=== PATIENT | female | born 1960 | race Asian ===

== ENCOUNTER 2016-07-11 21:53 | Observation (INO) | payer OTHER ==
[~2016-07-11] VITALS: Ht 160 cm; Wt 75.0 kg
[~2016-07-11 21:53] MED LIST: ADVIL200 M1 PO; AMLODIPINE BESYL5 MG PO; BENADRYL25 MG PO; CHILD ASPIRIN81 M1 PO; ENDOCET 5-3251 EACH PO; GLUCOPHAGE1000 MG PO; HUMULIN R100 UNITS/ SC; IBUPROFEN800 MG PO; KEFLEX500 MG PO; LEVEMIR100 UNIT/1 SQ; LISINOPRIL10 MG PO; LISINOPRIL20 MG PO; Levaquin PO; METOPROLOL SUCC50 MG PO; NOVOLOG 10100 UNITS/ SC; NOVOLOG MI100 UNIT/4 SC; PANTOPRAZOLE SO40 MG PO; PRILOSEC OTC20 MG PO; PYRIDIUM200 MG PO; TRAMADOL HCL50 MG PO; TYLENOL PM EX-1 EACH PO; TYLENOL REGULA325 MG PO; VICODIN 5-3001 EACH PO; XARELTO20 MG PO; ZESTRIL20 MG PO; ZOFRAN4 MG PO; Zestril,Prinivil PO
[2016-07-11] MEDS ORDERED: METOPROLOL TART25 MG PO (23:56)
[2016-07-11] MEDS ORDERED: LISINOPRIL40 MG PO (23:57)
[2016-07-11] MEDS ORDERED: METFORMIN HCL500 M1 PO (23:57)
[2016-07-11] MEDS ORDERED: GABAPENTIN300 MG PO (23:57)
[2016-07-12 00:29] LABS: HEMATOCRIT 42.1 % (36.0-46.0); MCH 29.5 PG (29.0-34.0); MCHC 33.7 G/DL (30.0-36.0); MCV 87.5 FL (83-99); MEAN PLAT.VOLUME 10.4 uM^3 (9.5-12.4); PLATELET COUNT 217 K/uL (156-360); RBC DIS.WIDTH-CV 12.8 % (11.8-14.6); RBC DIS.WIDTH-SD 40.9 % (39-53); RED BLOOD COUNT 4.81 M/uL (3.80-5.20); WHITE BLOOD COUNT 9.9 K/uL (4.1-10.2)
[2016-07-12 00:34] LABS: INTER. NORMALIZED RATIO 1.3; PROTHROMBIN TIME 13.4 (9.2-11.2); PTT 44.2 (25-32)
[2016-07-12 00:36] LABS: CHLORIDE 105 mEq/L (99-109); POTASSIUM 4.6 mEq/L (3.7-5.4); SODIUM 137 mEq/L (136-147)
[2016-07-12 00:38] LABS: GLUCOSE 211 mg/dL (70-99)
[2016-07-12 00:39] LABS: ANION GAP 6 MEQ/L (2-14)
[2016-07-12 00:40] LABS: TOTAL BILIRUBIN 0.2 mg/dL (0.0-1.0)
[2016-07-12 00:42] LABS: ALKALINE PHOSPHATASE 98 IU/L (3-129); GFR ESTIMATE (CALCULATED) 54 mL/min/
[2016-07-12 00:43] LABS: UREA NITROGEN (BUN) 23 mg/dL (9-23)
[2016-07-12 00:45] LABS: LIPASE 23 U/L (1.0-51.0)
[2016-07-12 06:02] VITALS: BP 186/88
[2016-07-12 07:24] VITALS: BP 180/79
[2016-07-12 08:59] LABS: HEMATOCRIT 41.8 % (36.0-46.0); MCH 29.4 PG (29.0-34.0); MCHC 33.5 G/DL (30.0-36.0); MCV 87.6 FL (83-99); MEAN PLAT.VOLUME 10.6 uM^3 (9.5-12.4); PLATELET COUNT 221 K/uL (156-360); RBC DIS.WIDTH-SD 41.8 % (39-53); RED BLOOD COUNT 4.77 M/uL (3.80-5.20); WHITE BLOOD COUNT 9.4 K/uL (4.1-10.2)
[2016-07-12 12:00] VITALS: BP 161/76
[2016-07-12 12:28] LABS: POINT-OF-CARE METER ID UU13113700
[2016-07-12] MEDS ORDERED: HYDROCHLOROTHIA25 MG PO (14:26)
[2016-07-12] MEDS ORDERED: METOPROLOL TART25 MG PO (14:26)
== END 2016-07-12 15:45 | disposition home or self-care (01) ==
LOC: EME 21:53 → EDOF 07-12 03:24 → 5WEST 07-12 05:24
PROVIDERS: Emergency Medicine; Family Medicine; Hospitalist
PROC: 2Y41X5Z Packing of Nasal Region using Packing Material (ICD-10-PCS; principal; 2016-07-12)
DX: I16.0 Hypertensive urgency (principal); I10 Essential (primary) hypertension; R04.0 Epistaxis; I48.91 Unspecified atrial fibrillation; Z86.73 Personal history of transient ischemic attack (TIA), and cerebral infarction without residual deficits; Z79.01 Long term (current) use of anticoagulants; R51 Headache; E78.5 Hyperlipidemia, unspecified; E11.9 Type 2 diabetes mellitus without complications; Z79.4 Long term (current) use of insulin; Z82.49 Family history of ischemic heart disease and other diseases of the circulatory system; Z83.3 Family history of diabetes mellitus; Z80.1 Family history of malignant neoplasm of trachea, bronchus and lung
CPT/HCPCS: 70450; 80053; 82948; 83690; 85027; 85610; 85730; 93005; 99281; 99285; G0378; J0360

== ENCOUNTER 2016-07-18 05:47 | Emergency (ER) | payer OTHER ==
[~2016-07-18] VITALS: Ht 160 cm; Wt 70.2 kg
[~2016-07-18 05:47] MED LIST changes: +GABAPENTIN300 MG PO; +HYDROCHLOROTHIA25 MG PO; +LISINOPRIL40 MG PO; +METFORMIN HCL500 M1 PO; +METOPROLOL TART25 MG PO
[2016-07-18 07:11] LABS: EOSINOPHIL (%) 1.7 % (0-5); EOSINOPHIL COUNT 0.1 K/uL (0-0.3); HEMATOCRIT 42.9 % (36.0-46.0); IMMATURE GRANULOCYTE (%) 0.3 % (0.0-0.7); IMMATURE GRANULOCYTE COUNT 0.2 K/uL; LYMPHOCYTE COUNT 0.8 K/uL (1.0-2.8); MCH 29.3 PG (29.0-34.0); MCHC 33.6 G/DL (30.0-36.0); MCV 87.4 FL (83-99); MEAN PLAT.VOLUME 10.7 uM^3 (9.5-12.4); MONOCYTE (%) 6.9 % (3-12); MONOCYTE COUNT 0.5 K/uL (0-0.8); NEUTROPHIL (%) 79.7 % (45-76); NEUTROPHIL COUNT 5.7 K/uL (1.8-6.4); PLATELET COUNT 200 K/uL (156-360); RBC DIS.WIDTH-CV 12.9 % (11.8-14.6); RED BLOOD COUNT 4.91 M/uL (3.80-5.20); WHITE BLOOD COUNT 7.1 K/uL (4.1-10.2)
[2016-07-18 07:43] LABS: ANION GAP 5 MEQ/L (2-14); CHLORIDE 101 MEQ/L (99-109); POTASSIUM 4.7 MEQ/L (3.7-5.4); SAMPLE HEMOLYSIS CHECK 0; SAMPLE ICTERIC CHECK 0; SAMPLE LIPEMIA CHECK 0; SODIUM 134 MEQ/L (136-147)
[2016-07-18 07:48] LABS: GFR ESTIMATE (CALCULATED) > 59 mL/min/; GLUCOSE 155 mg/dL (70-99); UREA NITROGEN (BUN) 14 mg/dL (9-23)
[2016-07-18 08:05] LABS: ADD MIUA? YES; BILIRUBIN NEGATIVE; BLOOD NEGATIVE; COLOR STRAW ((YELLOW)); GLUCOSE (STRIP) NEGATIVE; KETONES NEGATIVE; LEUKOCYTES NEGATIVE; NITRITE NEGATIVE; PROTEIN (STRIP) 100; SPECIFIC GRAVITY 1.013 (1.000-1.030); UROBILINOGEN 0.2 MG/DL (0.2-1.0)
[2016-07-18 08:10] LABS: BACTERIA NONE SEEN /HPF; EPITHELIAL CELLS NONE SEEN /HPF; MUCUS TRACE /LPF; RED BLOOD CELLS 0-5 /HPF (0-5); UCUL ADDED? NO; WHITE BLOOD CELLS 0-5 /HPF (0-5)
[2016-07-18 10:48] VITALS: BP 133/63
== END 2016-07-18 10:46 | disposition home or self-care (01) ==
LOC: EME 05:47
PROVIDERS: Emergency Medicine
DX: I10 Essential (primary) hypertension (principal)
CPT/HCPCS: 71020; 80048; 81003; 85025; 87502; 99281; 99285

== ENCOUNTER 2016-09-09 18:22 | Observation (INO) | payer OTHER ==
[~2016-09-09] VITALS: Ht 160 cm; Wt 74.7 kg
[2016-09-09 19:22] LABS: HEMATOCRIT 43.2 % (36.0-46.0); MCH 29.1 PG (29.0-34.0); MCHC 32.9 G/DL (30.0-36.0); MCV 88.5 FL (83-99); MEAN PLAT.VOLUME 10.6 uM^3 (9.5-12.4); PLATELET COUNT 239 K/uL (156-360); RBC DIS.WIDTH-CV 12.5 % (11.8-14.6); RBC DIS.WIDTH-SD 40.4 % (39-53); RED BLOOD COUNT 4.88 M/uL (3.80-5.20); WHITE BLOOD COUNT 8.2 K/uL (4.1-10.2)
[2016-09-09 19:24] LABS: CHLORIDE 105 mEq/L (99-109); POTASSIUM 4.4 mEq/L (3.7-5.4); SODIUM 142 mEq/L (136-147)
[2016-09-09 19:25] LABS: GLUCOSE 125 mg/dL (70-99)
[2016-09-09 19:26] LABS: ANION GAP 9 MEQ/L (2-14)
[2016-09-09 19:29] LABS: GFR ESTIMATE (CALCULATED) > 59 mL/min/
[2016-09-09 19:30] LABS: UREA NITROGEN (BUN) 17 mg/dL (9-23)
[2016-09-09 19:35] LABS: TROP-I INTERPRETATION NEGATIVE; TROPONIN-I < 0.01 ng/mL (0.0-0.30)
[2016-09-09] MEDS ORDERED: LOPRESSOR25 MG PO (22:33)
[2016-09-09] MEDS ORDERED: PRILOSEC20 MG PO (22:33)
[2016-09-09] MEDS ORDERED: CLONIDINE HCL0.1 MG PO (22:34)
[2016-09-10 00:43] VITALS: BP 137/67
[2016-09-10 01:28] LABS: TROP-I INTERPRETATION NEGATIVE; TROPONIN-I < 0.01 ng/mL (0.0-0.30)
[2016-09-10 03:04] VITALS: BP 124/64
[2016-09-10 07:08] VITALS: BP 117/56
[2016-09-10 07:25] LABS: TROP-I INTERPRETATION NEGATIVE; TROPONIN-I < 0.01 ng/mL (0.0-0.30)
[2016-09-10 08:46] LABS: POINT-OF-CARE METER ID UU13113831
== END 2016-09-10 10:49 | disposition home or self-care (01) ==
LOC: EME 18:22 → EDOF 23:11 → 5WEST 23:59
PROVIDERS: Hospitalist; Physician Assistant Medical
DX: I16.0 Hypertensive urgency (principal); I10 Essential (primary) hypertension; E11.9 Type 2 diabetes mellitus without complications; I48.0 Paroxysmal atrial fibrillation; Z86.73 Personal history of transient ischemic attack (TIA), and cerebral infarction without residual deficits; Z79.4 Long term (current) use of insulin
CPT/HCPCS: 70450; 71020; 80048; 82948; 84484; 85027; 93005; 99281; 99285; G0378; J0360; J1815

== ENCOUNTER → 2017-08-18 | Outpatient (CLI) | payer OTHER ==
[~2017-08-18] MED LIST changes: +CLONIDINE HCL0.1 MG PO; +LOPRESSOR25 MG PO; +PRILOSEC20 MG PO
== END | disposition home or self-care (01) ==
LOC: CDC 09:38
DX: R94.31 Abnormal electrocardiogram [ECG] [EKG] (principal); M65.312 Trigger thumb, left thumb; G56.03 Carpal tunnel syndrome, bilateral upper limbs; E11.42 Type 2 diabetes mellitus with diabetic polyneuropathy
CPT/HCPCS: 93000

== ENCOUNTER 2017-11-18 23:57 | Observation (INO) | payer OTHER ==
[~2017-11-18] VITALS: Ht 160 cm; Wt 73.1 kg
[2017-11-19] VITALS (9 sets, daily range): BP systolic 107–218; BP diastolic 55–93
[2017-11-19 00:41] LABS: HEMATOCRIT 44.6 % (36.0-46.0); HEMOGLOBIN 15.2 G/DL (11.9-15.5); MCH 30.5 PG (29.0-34.0); MCHC 34.1 G/DL (30.0-36.0); MCV 89.4 FL (83-99); PLATELET COUNT 203 K/uL (156-360); RBC DIS.WIDTH-CV 12.1 % (11.8-14.6); RBC DIS.WIDTH-SD 39.4 % (39-53); RED BLOOD COUNT 4.99 M/uL (3.80-5.20); WHITE BLOOD COUNT 10.3 K/uL (4.1-10.2)
[2017-11-19 00:49] LABS: INTER. NORMALIZED RATIO 1.4
[2017-11-19 00:51] LABS: ALBUMIN 4.4 g/dL (3.2-4.8); CHLORIDE 102 mEq/L (99-109); SODIUM 139 mEq/L (136-147)
[2017-11-19 00:52] LABS: PTT 44.2 SEC (25-37)
[2017-11-19 00:54] LABS: GLUCOSE 308 mg/dL (70-99); TOTAL PROTEIN 7.9 g/dL (6.4-8.3)
[2017-11-19 00:56] LABS: TOTAL BILIRUBIN 0.4 mg/dL (0.0-1.0)
[2017-11-19 00:57] LABS: ALKALINE PHOSPHATASE 118 IU/L (3-129); PHOSPHORUS 3.3 mg/dL (2.5-4.9)
[2017-11-19 00:58] LABS: CREATININE 1.2 mg/dL (0.6-1.3); GFR ESTIMATE (CALCULATED) 49 mL/min/
[2017-11-19 00:59] LABS: AST (GOT) 17 IU/L (2-34); UREA NITROGEN (BUN) 25 mg/dL (9-23)
[2017-11-19 01:01] LABS: ALT (GPT) 16 IU/L (3-49); LIPASE 29 U/L (1.0-51.0)
[2017-11-19 01:05] LABS: TROP-I INTERPRETATION NEGATIVE; TROPONIN-I 0.01 ng/mL (0.0-0.30)
[2017-11-19] MEDS ORDERED: ATORVASTATIN CA10 MG PO (05:46)
[2017-11-19] MEDS ORDERED: XARELTO20 MG PO (05:46)
[2017-11-19 06:58] LABS: TROP-I INTERPRETATION NEGATIVE; TROPONIN-I < 0.01 ng/mL (0.0-0.30)
[2017-11-19] MEDS ORDERED: TOPROL XL50 MG PO (10:31)
[2017-11-19] MEDS ORDERED: NITROSTAT0.4 MG SL (11:27)
[2017-11-19 13:10] LABS: TROP-I INTERPRETATION NEGATIVE; TROPONIN-I 0.01 ng/mL (0.0-0.30)
[2017-11-20 04:50] VITALS: BP 125/57
[2017-11-20 08:13] VITALS: BP 130/63
[2017-11-20] MEDS ORDERED: NIFEDIPINE20 MG PO (10:06)
[2017-11-20] MEDS ORDERED: ASPIR-LOW81 MG PO (10:06)
== END 2017-11-20 15:24 | disposition home or self-care (01) ==
LOC: EME → EDBD 11-19 00:05 → EME 11-19 00:05 → EDOF 11-19 03:20 → 4SOUTH 11-19 03:20 → EDOF 11-19 03:20 → ENRESERV 11-19 03:22 → 4SOUTH 11-19 05:15
PROVIDERS: Emergency Medicine; Hospitalist; Nurse Practitioner Adult Health
DX: I16.0 Hypertensive urgency (principal); R07.89 Other chest pain; I48.91 Unspecified atrial fibrillation; I10 Essential (primary) hypertension; Z86.73 Personal history of transient ischemic attack (TIA), and cerebral infarction without residual deficits; E11.65 Type 2 diabetes mellitus with hyperglycemia; Z79.4 Long term (current) use of insulin; K21.9 Gastro-esophageal reflux disease without esophagitis; D72.829 Elevated white blood cell count, unspecified; Z88.8 Allergy status to other drugs, medicaments and biological substances; Z79.82 Long term (current) use of aspirin
CPT/HCPCS: 71045; 71046; 80053; 82948; 83690; 83735; 84100; 84484; 85027; 85610; 85730; 93005; 99281; 99285; G0378; J1815; J7030